=== PATIENT | male | born 1970 ===

== ENCOUNTER 2020-07-22 13:24 | Inpatient (IN) ==
[2020-07-22] MEDS ORDERED: *HR* HYDROmorphone PF 0.5 MG/0.5 ML SYRINGE IVP PRN (13:46)
[2020-07-22] MEDS ORDERED: Ondansetron 4 MG/2 ML VIAL IVP PRN ×2 (13:46→17:17)
[2020-07-22] MEDS ORDERED: Promethazine 6.25 MG in Water for inj. (sterile) 20 ML IVPB PRN (13:46)
[2020-07-22] MEDS ORDERED: *HR* OxyCODONE Immed Rel 5 MG TABLET PO PRN (13:46)
[2020-07-22] MEDS ORDERED: *HR* Midazolam HCl 2 MG/2 ML VIAL ONE (13:54)
[2020-07-22] MEDS ORDERED: *HR* Propofol 200 MG/20 ML VIAL IVP ONE ×2 (13:55→15:58)
[2020-07-22] MEDS ORDERED: CeFAZolin Syr 2,000MG/20 ML 2,000 MG/20 ML SYRINGE IVPB ONE (13:55)
[2020-07-22] MEDS ORDERED: *HR* FentaNYL (PF) 100 MCG/2 ML VIAL ONE ×2 (13:55→14:37)
[2020-07-22] MEDS ORDERED: *HR* Succinylcholine 200 MG/10 ML VIAL IVP ONE (13:56)
[2020-07-22] MEDS ORDERED: *HR* Rocuronium Bromide 50 MG/5 ML VIAL ONE ×2 (13:56→15:25)
[2020-07-22] MEDS ORDERED: Dexamethasone 4 MG/ML VIAL ONE (13:56)
[2020-07-22] MEDS ORDERED: Lidocaine -MPF 2% 2 ML VIAL ONE (13:56)
[2020-07-22] MEDS ORDERED: Ondansetron 4 MG/2 ML VIAL ONE (13:56)
[2020-07-22] MEDS ORDERED: Ringers Solution, Lactated 1,000 ML IVC SCH (14:00)
[2020-07-22] MEDS ORDERED: Lidocaine HCL 4 ML Topical Solution (Laryng-O-Jet Kit Sterile Pak) TP ONE (14:07)
[2020-07-22] MEDS ORDERED: *HR* PHENYLEPHRINE 1,000 MCG/10 ML SYRINGE IVP ONE ×2 (14:32→15:11)
[2020-07-22] MEDS ORDERED: EPHEDrine 50 MG/ML VIAL ONE (14:53)
[2020-07-22] MEDS ORDERED: *HR* Phenylephrine 10 MG/ML VIAL ONE (15:10)
[2020-07-22] MEDS ORDERED: Acetaminophen IV 1,000 MG/100 ML BAG IVPB ONE (15:18)
[2020-07-22] MEDS ORDERED: Sugammadex Sodium 200 MG/2 ML VIAL IV ONE (15:34)
[2020-07-22] MEDS ORDERED: Ketorolac 30 MG/ML VIAL ONE (15:35)
[2020-07-22] MEDS ORDERED: *HR* HYDROMORPHONE 2 MG/ML VIAL ONE (15:57)
[2020-07-22] MEDS ORDERED: Naloxone 0.4 MG/ML INJ IVP PRN (17:17)
[2020-07-22] MEDS ORDERED: *HR* HYDROcodone/Acet 5/325 mg TABLET PO PRN (17:17)
[2020-07-22] MEDS ORDERED: 0.9 % Sodium Chloride 1,000 ML IVC SCH (17:17)
[2020-07-22] MEDS: Ketorolac 15 MG/ML VIAL IVP SCH ×2 (18:05→23:43)
[2020-07-22] MEDS ORDERED: ALPRAZolam 0.25 MG TABLET PO ONE (19:18)
[2020-07-22] MEDS: Ipratropium/Albuterol Neb 3 ML IH SCH (20:15)
[2020-07-22] MEDS: Famotidine 20 MG TABLET PO SCH (21:11)
[2020-07-22] MEDS: Gabapentin 300 MG CAPSULE PO SCH (21:12)
[2020-07-22] MEDS: Sennosides/Docusate Sodium TABLET PO SCH (21:12)
[2020-07-22] MEDS: *HR* Heparin 5,000 UNIT/ML VIAL SQ SCH (21:19)
[2020-07-23] MEDS: Ipratropium/Albuterol Neb 3 ML IH SCH ×7 (00:10→23:39)
[2020-07-23 02:43] LABS: Hematocrit 45.7 % (37.5-50.1); Mean Corpuscular HGB Conc 32.8 g/dL (31.6-35.5); Mean Corpuscular Hemoglobin 30.6 pg (28.0-33.3); Mean Corpuscular Volume 93.3 fL (83.0-100.0); Mean Platelet Volume 11.8 fL (9.4-12.4); Platelet Count 187 K/mcL (140-400); Red Cell Distribution Width 13.2 % (11.5-14.5); White Blood Count 19.4 K/mcL (4.3-11.1)
[2020-07-23 02:54] LABS: % Iron Saturation 23 % (20-55); BUN/Creatinine Ratio 19 (6-26); Blood Urea Nitrogen 18 mg/dL (6-20); Calcium 8.7 mg/dL (8.6-10.3); Carbon Dioxide 24 mEq/L (23-29); Chloride 104 mEq/L (98-107); Glucose 169 mg/dL (70-105); Iron 76 mcg/dL (65-175); Magnesium 1.7 mg/dL (1.6-2.6); Osmolality,Calculated 288 (280-300); Potassium 4.4 mEq/L (3.5-5.1); Sodium 136 mEq/L (136-145); Transferrin 237 mg/dL (203-362); eGFR For African Americans > 60 (> 60); eGFR For Non-African Americans > 60 (> 60)
[2020-07-23] MEDS: *HR* Heparin 5,000 UNIT/ML VIAL SQ SCH ×3 (06:07→21:32)
[2020-07-23] MEDS: Ketorolac 15 MG/ML VIAL IVP SCH ×3 (06:07→18:07)
[2020-07-23] MEDS: Famotidine 20 MG TABLET PO SCH ×2 (09:33→21:33)
[2020-07-23] MEDS: Sennosides/Docusate Sodium TABLET PO SCH ×2 (09:34→21:33)
[2020-07-23] MEDS: Gabapentin 300 MG CAPSULE PO SCH ×3 (09:34→21:32)
[2020-07-23] MEDS: *HR* HYDROcodone/Acet 7.5/325 mg TABLET PO PRN ×2 (13:09→21:32)
[2020-07-24] MEDS: Ipratropium/Albuterol Neb 3 ML IH SCH ×5 (04:09→20:41)
[2020-07-24] MEDS: Ketorolac 15 MG/ML VIAL IVP SCH ×4 (05:54→18:05)
[2020-07-24] MEDS: *HR* Heparin 5,000 UNIT/ML VIAL SQ SCH ×3 (06:08→21:21)
[2020-07-24] MEDS: Famotidine 20 MG TABLET PO SCH ×2 (09:27→21:22)
[2020-07-24] MEDS: Sennosides/Docusate Sodium TABLET PO SCH ×2 (09:28→21:22)
[2020-07-24] MEDS: Gabapentin 300 MG CAPSULE PO SCH ×3 (09:28→21:21)
[2020-07-24] MEDS: *HR* HYDROcodone/Acet 7.5/325 mg TABLET PO PRN (21:22)
[2020-07-25] MEDS: Ipratropium/Albuterol Neb 3 ML IH SCH ×7 (00:11→23:29)
[2020-07-25] MEDS: *HR* HYDROcodone/Acet 7.5/325 mg TABLET PO PRN (03:41)
[2020-07-25 04:45] LABS: Hematocrit 39.8 % (37.5-50.1); Mean Corpuscular HGB Conc 33.2 g/dL (31.6-35.5); Mean Corpuscular Hemoglobin 31.2 pg (28.0-33.3); Mean Corpuscular Volume 94.1 fL (83.0-100.0); Mean Platelet Volume 11.5 fL (9.4-12.4); Platelet Count 152 K/mcL (140-400); Red Blood Count 4.23 M/mcL (4.19-5.50); Red Cell Distribution Width 13.9 % (11.5-14.5); White Blood Count 11.5 K/mcL (4.3-11.1)
[2020-07-25 04:48] LABS: Hemoglobin 13.2 g/dL (12.9-16.9)
[2020-07-25 05:10] LABS: BUN/Creatinine Ratio 24 (6-26); Blood Urea Nitrogen 21 mg/dL (6-20); Calcium 8.8 mg/dL (8.6-10.3); Carbon Dioxide 25 mEq/L (23-29); Chloride 108 mEq/L (98-107); Glucose 90 mg/dL (70-105); Osmolality,Calculated 293 (280-300); Potassium 4.5 mEq/L (3.5-5.1); Sodium 140 mEq/L (136-145); eGFR For African Americans > 60 (> 60); eGFR For Non-African Americans > 60 (> 60)
[2020-07-25] MEDS: Ketorolac 15 MG/ML VIAL IVP SCH ×5 (05:58→23:36)
[2020-07-25] MEDS: *HR* Heparin 5,000 UNIT/ML VIAL SQ SCH ×3 (05:59→21:11)
[2020-07-25] MEDS: Gabapentin 300 MG CAPSULE PO SCH ×3 (09:11→21:12)
[2020-07-25] MEDS: Sennosides/Docusate Sodium TABLET PO SCH ×2 (09:11→21:12)
[2020-07-25] MEDS: Famotidine 20 MG TABLET PO SCH ×2 (09:11→21:12)
[2020-07-26] MEDS: *HR* HYDROcodone/Acet 7.5/325 mg TABLET PO PRN ×2 (00:01→14:32)
[2020-07-26] MEDS: Ipratropium/Albuterol Neb 3 ML IH SCH ×6 (03:36→23:26)
[2020-07-26] MEDS: Ketorolac 15 MG/ML VIAL IVP SCH ×4 (05:32→23:30)
[2020-07-26] MEDS: *HR* Heparin 5,000 UNIT/ML VIAL SQ SCH ×3 (05:32→21:03)
[2020-07-26] MEDS: Sennosides/Docusate Sodium TABLET PO SCH ×2 (08:57→21:03)
[2020-07-26] MEDS: Gabapentin 300 MG CAPSULE PO SCH ×3 (08:57→21:03)
[2020-07-26] MEDS: Famotidine 20 MG TABLET PO SCH ×2 (08:57→21:03)
[2020-07-27] MEDS: Ipratropium/Albuterol Neb 3 ML IH SCH ×6 (04:13→23:47)
[2020-07-27] MEDS: *HR* Heparin 5,000 UNIT/ML VIAL SQ SCH ×3 (05:52→21:29)
[2020-07-27] MEDS: Ketorolac 15 MG/ML VIAL IVP SCH ×3 (05:52→17:30)
[2020-07-27] MEDS: Gabapentin 300 MG CAPSULE PO SCH ×3 (08:36→21:29)
[2020-07-27] MEDS: Sennosides/Docusate Sodium TABLET PO SCH ×2 (08:37→21:29)
[2020-07-27] MEDS: Famotidine 20 MG TABLET PO SCH ×2 (08:37→21:29)
[2020-07-28] MEDS: *HR* HYDROcodone/Acet 7.5/325 mg TABLET PO PRN (00:15)
[2020-07-28] MEDS: Ipratropium/Albuterol Neb 3 ML IH SCH ×3 (03:58→11:35)
[2020-07-28] MEDS: *HR* Heparin 5,000 UNIT/ML VIAL SQ SCH (05:53)
[2020-07-28] MEDS: Gabapentin 300 MG CAPSULE PO SCH (08:33)
[2020-07-28] MEDS: Sennosides/Docusate Sodium TABLET PO SCH (08:33)
[2020-07-28] MEDS: Famotidine 20 MG TABLET PO SCH (08:33)
[2020-07-28 11:28] VITALS: BP 145/99
== END 2020-07-28 12:20 | disposition home or self-care (01) ==
LOC: SAMDAY 13:24 → 2NNU 17:07
PROVIDERS: ADMIT Thoracic Surgery (Cardiothoracic Vascular Surgery); ATTEND Thoracic Surgery (Cardiothoracic Vascular Surgery)